=== PATIENT | male | born 1995 | race Caucasian/White ===

== ENCOUNTER 2024-05-05 00:15 | Emergency (ER) | payer OTHER ==
[~2024-05-05] VITALS: Ht 182.9 cm; Wt 90.7 kg
[2024-05-05 00:18] VITALS: BP 123/80; PULSE 58; RESP 16; TEMP 98.3; O2SAT 98
[2024-05-05 00:31] VITALS: O2SAT 98
[2024-05-05 01:01] VITALS: BP 123/80; PULSE 58; RESP 16; TEMP 98.3; O2SAT 98
== END 2024-05-05 01:02 | disposition home or self-care (01) ==
LOC: MED 00:15
DX: S00.81XA Abrasion of other part of head, initial encounter (principal); K21.9 Gastro-esophageal reflux disease without esophagitis; Z88.1 Allergy status to other antibiotic agents; W22.8XXA Striking against or struck by other objects, initial encounter; Y92.89 Other specified places as the place of occurrence of the external cause; Y93.89 Activity, other specified; Y99.8 Other external cause status
CPT/HCPCS: 99281